=== PATIENT | female | born 1980 | race Caucasian/White ===

== ENCOUNTER 2020-05-09 05:35 | Inpatient (IN) ==
[2020-05-09] MEDS ORDERED: ceFAZolin 2,000 MG in PREMIX 1 EACH IV ONE (05:44)
[2020-05-09] MEDS ORDERED: CITRIC ACID/SODIUM CITRATE 30 ML UDCUP PO ONE (05:44)
[2020-05-09] MEDS ORDERED: FAMOTIDINE 20 MG/2 ML VIAL IV ONE (05:44)
[2020-05-09] MEDS ORDERED: LACTATED RINGERS 1,000 ML IV SCH (06:00)
[2020-05-09 07:00] LABS: Basophils # 0.1 10*3/uL (0.0-0.2); Basophils % 0.5 % (0.0-0.8); Eosinophils # 0.1 10*3/uL (0.0-0.87); Eosinophils % 1.2 % (0.00-10.9); Hematocrit 39.3 VOL% (35.7-47.0); Immature Granulocytes Absolute 0.09 #; Lymphocytes # 2.5 10*3/uL (1.4-4.0); Lymphocytes % 27.6 % (21.3-54.2); Mean Corpuscular HGB Conc 35.6 GM/DL (32-36); Mean Corpuscular Volume 91.4 FL (87-102); Mean Platelet Volume 12.8 FL (9.6-12.0); Monocytes % 6.4 % (1.7-12.7); Neutrophils % 63.3 % (38.7-73.9); Platelet Count 170 T/CUMM (130-400); Red Cell Distribution Width 13.2 % (9.3-17.3); White Blood Count 9.2 T/CUMM (4-12)
[2020-05-09] MEDS ORDERED: MORPHINE 10 MG/10 ML VIAL ONE (07:10)
[2020-05-09 07:20] LABS: Platelet Estimate Adequate
[2020-05-09 08:07] LABS: Cord Venous Blood HCO3 16.2 MMOL/L; Cord Venous Blood PCO2 65.7 MMHG; Cord Venous Blood PO2 17.4
[2020-05-09 08:08] LABS: Cord Arterial Blood HCO3 21.4 MMOL/L
[2020-05-09 08:13] LABS: Bilirubin,Urine Negative (Negative); Blood, Urine Negative (Negative); Glucose,Urine (UA) Negative (Negative); Ketones,Urine Negative (Negative); Mucus,Urine Occasional /LPF (Occasional); Nitrite,Urine Negative (Negative); Protein,Urine Negative; RBC,Urine 1 /HPF (0-4); Squamous Epithelial Cell,Urine Occasional /HPF (0-10); Urine Appearance CLEAR (Clear); Urine Color Yellow (Yellow); Urine Specific Gravity 1.024 (1.001-1.035); Urine Urobilinogen < 2.0 EU/DL (0.2-1.0); WBC,Urine <1 /HPF (0-6)
[2020-05-09] MEDS ORDERED: RHO(D) IMMUNE GLOBULIN 300 MCG SYRINGE IM ONE (08:18)
[2020-05-09] MEDS ORDERED: MEASLES/MUMPS/RUBELLA VACCINE 0.5 ML VIAL SUBCUT ONE (08:18)
[2020-05-09] MEDS ORDERED: BENZOCAINE 20%/MENTHOL 0.5% SPRAY 56 GM CAN TOP PRN (08:18)
[2020-05-09] MEDS ORDERED: WITCH HAZEL PADS 100/JAR TOP PRN (08:18)
[2020-05-09] MEDS ORDERED: HYDROCORTISONE 2.5% RECTAL CREAM 30 GM TUBE TOP PRN (08:18)
[2020-05-09] MEDS ORDERED: DIPH/TET/ACEL PERT BOOSTER VACCINE 0.5 ML VIAL IM ONE (08:18)
[2020-05-09] MEDS ORDERED: BISACODYL 10 MG SUPP RECTAL PRN (08:18)
[2020-05-09] MEDS ORDERED: ACETAMINOPHEN 325 MG TABLET PO PRN (08:18)
[2020-05-09] MEDS ORDERED: LANOLIN 50% CREAM 0.3 OZ TUBE TOP PRN (08:18)
[2020-05-09] MEDS ORDERED: ONDANSETRON 4 MG/2 ML VIAL IV PRN (08:18)
[2020-05-09] MEDS ORDERED: OXYTOCIN/LR 20 UNIT/1,000 ML BAG IV ONE (08:18)
[2020-05-09] MEDS ORDERED: BUPIVACAINE MPF 0.25% 30 ML VIAL ONE (10:28)
[2020-05-09] MEDS ORDERED: ONDANSETRON 4 MG/2 ML VIAL ONE (10:28)
[2020-05-09] MEDS ORDERED: DEXAMETHASONE 4 MG/1 ML VIAL ONE (10:28)
[2020-05-09] MEDS ORDERED: BUPIVACAINE SPINAL 0.75% 2 ML AMP SPINAL ONE (10:28)
[2020-05-09] MEDS ORDERED: diphenhydrAMINE CAP 25 MG CAPSULE PO PRN (12:05)
[2020-05-09] MEDS: DOCUSATE SODIUM 100 MG CAPSULE PO SCH ×2 (12:53→21:07)
[2020-05-09] MEDS: ceFAZolin 1,000 MG in SYRINGE 1 EACH IV SCH ×2 (15:17→23:44)
[2020-05-09] MEDS: oxyCODONE/ACETAMINOPHEN 5-325 MG TABLET PO PRN (16:23)
[2020-05-09] MEDS: IBUPROFEN 800 MG TABLET PO PRN (16:23)
[2020-05-10] MEDS: IBUPROFEN 800 MG TABLET PO PRN ×2 (00:10→09:08)
[2020-05-10] MEDS: oxyCODONE/ACETAMINOPHEN 5-325 MG TABLET PO PRN ×4 (00:11→21:39)
[2020-05-10 05:57] LABS: Basophils % 0.2 % (0.0-0.8); Eosinophils % 0.2 % (0.00-10.9); Hematocrit 31.4 VOL% (35.7-47.0); Immature Granulocytes % 0.6 %; Immature Granulocytes Absolute 0.09 #; Lymphocytes # 2.6 10*3/uL (1.4-4.0); Lymphocytes % 17.9 % (21.3-54.2); Mean Corpuscular Volume 93.7 FL (87-102); Mean Platelet Volume 12.7 FL (9.6-12.0); Monocytes % 9.1 % (1.7-12.7); Platelet Count 137 T/CUMM (130-400); Red Cell Distribution Width 13.2 % (9.3-17.3)
[2020-05-10 06:00] LABS: Red Blood Count 3.35 MC/CUMM (3.8-5.5); White Blood Count 14.6 T/CUMM (4-12)
[2020-05-10] MEDS ORDERED: SIMETHICONE CHEW 80 MG TABLET PO PRN (08:19)
[2020-05-10] MEDS: MAGNESIUM HYDROXIDE SUSP 30 ML UDCUP PO PRN ×2 (08:40→20:28)
[2020-05-10] MEDS: DOCUSATE SODIUM 100 MG CAPSULE PO SCH ×2 (08:40→20:28)
[2020-05-11] MEDS: oxyCODONE/ACETAMINOPHEN 5-325 MG TABLET PO PRN ×2 (03:31→10:00)
[2020-05-11] MEDS: IBUPROFEN 400 MG TABLET PO PRN ×2 (03:31→10:00)
[2020-05-11] MEDS: DOCUSATE SODIUM 100 MG CAPSULE PO SCH (09:00)
[2020-05-11] MEDS: MAGNESIUM HYDROXIDE SUSP 30 ML UDCUP PO PRN (10:00)
[2020-05-11 10:19] VITALS: BP 134/82
== END 2020-05-11 13:20 | disposition home or self-care (01) | DRG 788 ==
LOC: N.LD 05:35 → N.OB 12:04
PROVIDERS: ADMIT Specialist; ATTEND Specialist
PROC: LDCSECT (ICD-10-PCS; 2020-05-09 07:30)